=== PATIENT | female | born 1930 | race Asian ===

== ENCOUNTER 2016-12-12 21:19 | Inpatient (IN) | payer MEDICARE, OTHER ==
--- NOTE | 2016-12-12 22:29 | RADIOLOGY REPORT (SQ) ---
EXAM DESCRIPTION: FEMUR RIGHT COMPLETED DATE/TIME: 12/12/2016 9:55 pm REASON FOR STUDY: fall COMPARISON: None. NUMBER OF VIEWS: Two views. TECHNIQUE: Two radiographic images acquired of the right femur to include hip and knee in at least o ne projection. LIMITATIONS: None. FINDINGS: MINERALIZATION: Normal. BONES: An oblique lucency is identified at the level of the proximal femur which I cannot exclude as an intertrochanteric fracture. Clinical correlation is recommended. No other evidence for fracture is seen. SOFT TISSUES: No obvious swelling or foreign body. OTHER: No other significant finding. IMPRESSION: An oblique lucency is identified at the level of the proximal femur which I cannot exclu de as an intertrochanteric fracture. Clinical correlation is recommended. No other evidence for fra cture is seen. TECHNICAL DOCUMENTATION: JOB ID: [id number]- All Rights Reserved
[2016-12-12] MEDS ORDERED: MORPHINE SULFATE 10 MG/ML INJ IV ONE ×2 (22:42)
--- NOTE | 2016-12-12 22:46 | ER Document Report ---
ED General - General Chief Complaint: Leg Pain Stated Complaint: FALL,HIP PAIN Time Seen by Provider: 12/12/16 21:57 Notes: Patient is an 86-year-old female who presents with complaint of a fall from a recliner. Her home health aide and power of corporate attorney was at the health with her. She usually walks well without a cane or walker. She says she was get out of the recliner and fell onto her right side. She denies pain other than in her right hip and proximal femur. She says she cannot move it or walk. She denies any her head. No loss of consciousness. She does not take blood thinning medications. TRAVEL OUTSIDE OF THE [place] IN LAST 30 DAYS: No - Related Data Allergies/Adverse Reactions: levothyroxine sodium [Levothyroxine Sodium] Adverse Reaction (Verified 03/27/14 17:52) NAUSEA/VOMITING Past Medical History - Social History Smoking Status: Never Smoker Frequency of alcohol use: None Drug Abuse: None Family History: Reviewed & Not Pertinent - Past Medical History Cardiac Medical History: Reports: Hx Hypertension - meds 8-10 yrs Denies: Hx Coronary Artery Disease, Hx Heart Attack Pulmonary Medical History: Denies: Hx Asthma, Hx Bronchitis, Hx COPD, Hx Pneumonia Neurological Medical History: Denies: Hx Cerebrovascular Accident, Hx Seizures Musculoskeltal Medical History: 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 Denies: Hx Pacemaker - Immunizations Hx Diphtheria, Pertussis, Tetanus Vaccination: No Hx Pneumococcal Vaccination: 07/10/08 Review of Systems - Review of Systems Notes: My Normal Review Basic REVIEW OF SYSTEMS: CONSTITUTIONAL : Denies fever, chills, or sweats. Denies recent illness. EENT: Denies eye, ear, throat, or mouth pain or symptoms. Denies nasal or sinus congestion. RESPIRATORY: Denies cough, cold, or chest congestion. Denies shortness of breath, difficulty breathing, or wheezing. GASTROINTESTINAL: Denies abdominal pain. Denies nausea, vomiting, or diarrhea. Denies constipation. Last BM: MUSCULOSKELETAL: Right hip pain. SKIN: Denies rash or skin lesions. NEUROLOGICAL: Denies altered mental status or loss of consciousness. Denies headache. Denies weakness or paralysis or loss of use of either side. Denies problems with gait or speech. Denies sensory or motor loss. ALL OTHER SYSTEMS REVIEWED AND NEGATIVE. Physical Exam - Vital signs Vitals: Pulse Ox 94 12/12/16 21:29 - Notes Notes: General Appearance: Well nourished, alert, cooperative, no acute distress, moderate obvious discomfort with any hip movement. Vitals: reviewed, See vital signs table. Head: no swelling or tenderness to the head Eyes: PERRL, EOMI, Conjuctiva clear Mouth: No decreasd moisture Neck: Tenderness to palpation. No step-offs or deformities. Lungs: No wheezing, No rales, No rhonci, No accessory muscle use, good air exchange bilaterally. Heart: Normal rate, Regular rythm, No murmur, no rub Abdomen: Normal BS, soft, No rigidity, No abdominal tenderness, No guarding, no rebound, no abdominal masses, no organomegaly Extremities: strength 5/5 in all extremities, good pulses in all extremities, patient has pain to palpation over the right hip. Pelvis is stable. She has pain with any attempted movement of the right hip. Right knee and leg distal to right knee is nontender. Left lower extremity is nontender. Upper extremities are nontender., no edema. Skin: warm, dry, appropriate color, no rash Neuro: speech clear, oriented x 3, normal affect, responds appropriately to questions. Course - Re-evaluation Re-evalutation: 12/13/16 01:55 CT scan did confirm that she does have a intertrochanteric fracture. This is consistent with her physical exam findings. I did speak with Dr. Newell who agrees to admit the patient for consult with orthopedics. Dr. Smiley is the orthopedist covering [facility]. Preop Labs are pending. Dictation of this chart was performed using voice recognition software; therefore, there may be some unintended grammatical errors. 12/13/16 01:56 - Vital Signs Vital signs: Temp Pulse Resp BP Pulse Ox 110/94 H 90 L 12/12/16 22:46 12/12/16 23:09 - EKG Interpretation by Me Additional EKG results interpreted by me: 12/13/16 01:54 EKG is reviewed and interpreted by me. EKG shows normal sinus rhythm with a rate of [address] segment elevation or depression. No ischemic T-wave inversions. MO interval, QRS duration, QTc intervals are within normal range. Old EKG for comparison is from February 27, 2013. Discharge - Discharge Clinical Impression: Hip fracture Qualifiers: Encounter type: initial encounter Fracture type: closed Laterality: right Qualified Code(s): S72.001A - Fracture of unspecified part of neck of right femur, initial encounter for closed fracture Condition: Stable Disposition: ADMITTED INPATIENT Admitting Provider: Newell Unit Admitted: Medical Floor
--- NOTE | 2016-12-12 23:53 | RADIOLOGY REPORT (SQ) ---
EXAM DESCRIPTION: CT RT LOWER EXTREMITY WITHOUT COMPLETED DATE/TIME: 12/12/2016 11:10 pm REASON FOR STUDY: right hip pain. trauma COMPARISON: None. TECHNIQUE: Axial imaging performed through the right hip with reformatted coronal and sagittal imagi ng windowed for bone and soft tissues. Images saved to PACS. 3D IMAGING: Were 3D images as MIP, SSD, or volume rendering performed at the work station? No All CT scanners at this facility use dose modulation, iterative reconstruction, and/or weight based d osing when appropriate to reduce radiation dose to as low as reasonably achievable (ALARA). [facility]: Dose Right [facility]: CareDose [facility]: Dose Right [facility]: Teradose 4D [facility]: [employer] LIMITATIONS: None. RADIATION DOSE: 4.12 mGy. FINDINGS: SOFT TISSUES: No obvious swelling or foreign body. BONES: Transverse fracture is identified just proximal to the intertrochanteric region at the base of the neck of the femur with angulation at the fracture site. No other evidence for fracture is seen. MINERALIZATION: Normal. OTHER: No other significant finding. IMPRESSION: Transverse fracture is identified just proximal to the intertrochanteric region at the b ase of the neck of the right femur with angulation at the fracture site. No other evidence for fract ure is seen. Other findings as noted above TECHNICAL DOCUMENTATION: JOB ID: [id number] Quality ID # [id number]: Final reports with documentation of one or more dose reduction techniques (e.g., Au tomated exposure control, adjustment of the mA and/or kV according to patient size, use of iterative reconstruction technique) 2010 [employer]- All Rights Reserved
[2016-12-13] MEDS ORDERED: MORPHINE SULFATE 10 MG/ML INJ IV ONE (00:12)
--- NOTE | 2016-12-13 01:14 | RADIOLOGY REPORT (SQ) ---
EXAM DESCRIPTION: CHEST SINGLE VIEW COMPLETED DATE/TIME: 12/13/2016 1:05 am REASON FOR STUDY: pre-op COMPARISON: 06/09/2014. EXAM PARAMETERS: NUMBER OF VIEWS: One view. TECHNIQUE: Single frontal radiographic view of the chest acquired. RADIATION DOSE: NA LIMITATIONS: None. FINDINGS: LUNGS AND PLEURA: Emphysematous appearance. MEDIASTINUM AND HILAR STRUCTURES: No masses. Contour normal. HEART AND VASCULAR STRUCTURES: Heart normal in size. Normal vasculature. BONES: No acute findings. HARDWARE: Nuchal clips. Electronic device overlies the left upper breast. OTHER: No other significant finding. IMPRESSION: NO ACUTE RADIOGRAPHIC FINDING IN THE CHEST. TECHNICAL DOCUMENTATION: JOB ID: [id number]
[2016-12-13] MEDS ORDERED: ACETAMINOPHEN 325 MG TABLET PO PRN (02:04)
[2016-12-13] MEDS ORDERED: NORMAL SALINE 1000 ML 1,000 ML IV PRN (02:04)
[2016-12-13] MEDS ORDERED: IPRATROPIUM/ALBUTEROL 0.5-2.5 MG/3 ML AMPUL NEB PRN (02:08)
[2016-12-13 02:40] LABS: ANION GAP 7 (5-19); BLOOD UREA NITROGEN 20 mg/dL (7-20); CALCIUM 9.9 mg/dL (8.4-10.2); CARBON DIOXIDE 27 mmol/L (22-30); CHLORIDE 104 mmol/L (98-107); CREATININE RESULT 0.76 mg/dL (0.52-1.25); GLUCOSE 109 mg/dL (75-110); POTASSIUM 4.1 mmol/L (3.6-5.0); SODIUM 138.4 mmol/L (137-145)
[2016-12-13 02:41] LABS: PROTHROMBIN TIME 12.9 SEC (11.4-15.4)
[2016-12-13 02:42] LABS: PARTIAL THROMBOPLASTIN TIME 25.8 SEC (23.5-35.8)
[2016-12-13 02:43] LABS: ABSOLUTE BASOPHILS # (AUTO) 0.1 10^3/uL (0.0-0.2); ABSOLUTE LYMPHOCYTES (AUTO) 1.2 10^3/uL (0.5-4.7); ABSOLUTE MONOCYTES (AUTO) 0.5 10^3/uL (0.1-1.4); ABSOLUTE NEUT (AUTO) 7.7 10^3/uL (1.7-8.2); BASOPHILS % (AUTO) 0.5 % (0-2); EOSINOPHILS % (AUTO) 0.1 % (0-6); HEMATOCRIT 37.6 % (36.0-47.0); HEMOGLOBIN 12.5 g/dL (12.0-15.5); HGB HCT DIFFERENCE -0.1; LYMPHOCYTES % (AUTO) 12.7 % (13-45); MEAN CORPUSCULAR HEMOGLOBIN 32.7 pg (27.0-33.4); MEAN CORPUSCULAR HGB CONC 33.3 g/dL (32.0-36.0); MEAN CORPUSCULAR VOLUME 98 fl (80-97); MONOCYTES % (AUTO) 5.5 % (3-13); RED BLOOD COUNT 3.83 10^6/uL (3.72-5.28); RED CELL DISTRIBUTION WIDTH 13.7 % (11.5-14.0); SEGMENTED NEUTROPHILS % (AUTO) 81.2 % (42-78); WHITE BLOOD COUNT 9.5 10^3/uL (4.0-10.5)
[2016-12-13] MEDS ORDERED: ENOXAPARIN SODIUM INJ 40 MG/0.4 ML DISP.SYRIN SUBCUT SCH (08:00)
[2016-12-13] MEDS: ENOXAPARIN SODIUM INJ 30 MG/0.3 ML DISP.SYRIN SUBCUT SCH (09:44)
--- NOTE | 2016-12-13 09:55 | PDOC H&P ---
History of Present Illness Admission Date/PCP: 12/13/16 02:04 THIERRY HEATON MD Patient complains of: Fall and a fracture of the right femur History of Present Illness: AFRICA FELDMAN is a 86 year old female This is a 86-year-old female with a history of the hypertension hyperlipidemia and hypothyroidism and underlying dementia usually walk with the cane without any problem. According to the caregiver patient's fell from the recliner yesterday and complaining of right-sided hip pain and patient was brought to the emergency department with the patient was found a right intratrochanteric fracture in the femur and patient was admitted for further evaluation and treatment Patient's currently denied any pain patient was given morphine in the emergency departments. Patients denied any chest pain denied any shortness of the breath Patient's platelet count was low but most likely which is listed repeated again was always normal before Patients denied any history of any heart disease in the past Past Medical History Cardiac Medical History: Reports: Hyperlipidema, Hypertension - meds 8-10 yrs Denies: Coronary Artery Disease, Myocardial Infarction Pulmonary Medical History: Denies: Asthma, Bronchitis, Chronic Obstructive Pulmonary Disease (COPD), Pneumonia Neurological Medical History: Denies: Seizures GI Medical History: Reports: Gastroesophageal Reflux Disease Musculoskeltal Medical History: Reports: Arthritis - fingers Psychiatric Medical History: Reports: Dementia Hematology: Denies: Anemia Past Surgical History Past Surgical History: Reports: Hysterectomy Denies: Pacemaker Social History Smoking Status: Never Smoker Frequency of Alcohol Use: None Hx Recreational Drug Use: No Hx Prescription Drug Abuse: No - Advance Directive Resuscitation Status: Full Code Family History Family History: Reviewed & Not Pertinent Parental Family History Reviewed: Yes Children Family History Reviewed: Yes Sibling(s) Family History Reviewed.: Yes Medication/Allergy Allergies/Adverse Reactions: levothyroxine sodium [Levothyroxine Sodium] Adverse Reaction (Verified 03/27/14 17:52) NAUSEA/VOMITING Review of Systems Constitutional: ABSENT: chills, fever(s), headache(s), weight gain, weight loss Eyes: ABSENT: visual disturbances Ears: ABSENT: hearing changes Cardiovascular: ABSENT: chest pain, dyspnea on exertion, edema, orthropnea, palpitations Respiratory: ABSENT: cough, hemoptysis Gastrointestinal: ABSENT: abdominal pain, constipation, diarrhea, hematemesis, hematochezia, nausea, vomiting Genitourinary: ABSENT: dysuria, hematuria Musculoskeletal: ABSENT: joint swelling Integumentary: ABSENT: rash, wounds Neurological: ABSENT: abnormal gait, abnormal speech, confusion, dizziness, focal weakness, syncope Psychiatric: ABSENT: anxiety, depression, homidical ideation, suicidal ideation Endocrine: ABSENT: cold intolerance, heat intolerance, menstrual abnormalities, polydipsia, polyuria Hematologic/Lymphatic: ABSENT: easy bleeding, easy bruising, lymphadenopathy Physical Exam Vital Signs: Temp Pulse Resp BP Pulse Ox 98.3 F 73 16 130/59 H 93 12/13/16 07:38 12/13/16 07:38 12/13/16 07:38 12/13/16 07:38 12/13/16 07:38 Intake & Output 12/12/16 12/13/16 12/14/16 06:59 06:59 06:59 Intake Total 150 Balance 150 Weight 43.68 kg General appearance: PRESENT: no acute distress, well-developed, well-nourished Head exam: PRESENT: atraumatic, normocephalic Eye exam: PRESENT: conjunctiva pink, EOMI, PERRLA. ABSENT: scleral icterus Ear exam: PRESENT: normal external ear exam Mouth exam: PRESENT: moist, tongue midline Neck exam: PRESENT: full ROM. ABSENT: carotid bruit, JVD, lymphadenopathy, thyromegaly Respiratory exam: PRESENT: clear to auscultation faroqo Cardiovascular exam: PRESENT: RRR. ABSENT: diastolic murmur, rubs, systolic murmur Pulses: PRESENT: normal dorsalis pedis pul, +2 pedal pulses bilateral Vascular exam: PRESENT: normal capillary refill GI/Abdominal exam: PRESENT: normal bowel sounds, soft. ABSENT: distended, guarding, mass, organolmegaly, rebound, tenderness Rectal exam: PRESENT: deferred Extremities exam: PRESENT: other - rt side leg ext rotation. ABSENT: pedal edema Neurological exam: PRESENT: alert, awake, oriented to person, oriented to place , oriented to time, oriented to situation. ABSENT: motor sensory deficit Psychiatric exam: PRESENT: appropriate affect, normal mood. ABSENT: homicidal ideation, suicidal ideation Skin exam: PRESENT: dry, intact, warm. ABSENT: cyanosis, rash Results Laboratory Results: 12/13/16 02:10 12/13/16 02:10 12/13/16 12/13/16 02:10 02:10 WBC 9.5 RBC 3.83 Hgb 12.5 Hct 37.6 MCV 98 H MCH 32.7 MCHC 33.3 RDW 13.7 Plt Count 100 L Seg Neutrophils % 81.2 H Lymphocytes % 12.7 L Monocytes % 5.5 Eosinophils % 0.1 Basophils % 0.5 Absolute Neutrophils 7.7 Absolute Lymphocytes 1.2 Absolute Monocytes 0.5 Absolute Eosinophils 0.0 Absolute Basophils 0.1 Sodium 138.4 Potassium 4.1 Chloride 104 Carbon Dioxide 27 Anion Gap 7 BUN 20 Creatinine 0.76 Est GFR ( Amer) > 60 Est GFR (Non-Af Amer) > 60 Glucose 109 Calcium 9.9 Impressions: Femur X-Ray 12/12/16 21:26 IMPRESSION: An oblique lucency is identified at the level of the proximal femur which I cannot exclude as an intertrochanteric fracture. Clinical correlation is recommended. No other evidence for fracture is seen. Lower Extremity CT 12/12/16 22:42 IMPRESSION: Transverse fracture is identified just proximal to the intertrochanteric region at the base of the neck of the right femur with angulation at the fracture site. No other evidence for fracture is seen. Other findings as noted above Chest X-Ray 12/13/16 00:07 IMPRESSION: NO ACUTE RADIOGRAPHIC FINDING IN THE CHEST. Assessment & Plan - Diagnosis (1) Hip fracture Qualifiers: Encounter type: initial encounter Fracture type: closed Laterality : right Qualified Code(s): S72.001A - Fracture of unspecified part of neck of right femur, initial encounter for closed fracture Plan: Consult the orthopedic surgeon and discussed with the Ortho and sameer castano was likely patient is going for the surgery Will repeat the CBC most likely the thrombocytopenia from the platelet clumping. (2) Hypertension Qualifiers: Hypertension type: essential hypertension Qualified Code(s): I10 - Essential (primary) hypertension Is this a current diagnosis for this admission?: YesPlan: Currently stable (3) Hypothyroidism Qualifiers: Hypothyroidism type: unspecified Qualified Code(s): E03.9 - Hypothyroidism, unspecified Is this a current diagnosis for this admission?: YesPlan: Continues to current medications (4) Dementia Qualifiers: Dementia behavioral disturbance: without behavioral disturbance Is this a current diagnosis for this admission?: YesPlan: Currently stable with the continuous medications (5) Thrombocytopenia Is this a current diagnosis for this admission?: YesPlan: Will repeat the CBC again and if is more than 100 I think patient should be okay patient's coag is all negative and there is no sign of any DIC. Patient's platelet count was couple of weeks back was all normal (6) Osteoarthritis Qualifiers: Osteoarthritis location: unspecified site Is this a current diagnosis for this admission?: YesPlan: Continues as needed medications - Time Time Spent: 30 to 50 Minutes Medications reviewed and adjusted accordingly: Yes Anticipated discharge: SNF Within: Other - Inpatient Certification Medical Necessity: Need Close Monitoring Due to Risk of Patient Decompensation, Need For IV Fluids Post Hospital Care: D/C Agriculture Technician Documentation - Plan Summary Plan Summary: Patient is currently all the blood work is stable chest x-ray and EKG is stable except the patient's platelet count is low and will repeat it again and if is still stable about 100 patient is low risk for the surgery. Discussed with the surgeon and also discussed with the power of environmental attorney regarding the patient's current conditions.
--- NOTE | 2016-12-13 10:02 | PDOC CONSULTATION ---
History of Present Illness Admission Date/PCP: 12/13/16 02:04 THIERRY HEATON MD Patient complains of: Right Hip Pain History of Present Illness: AFRICA FELDMAN is a 86 year old female who lives at home alone does have a caregiver who is her neighbor who acts as the power of patent prosecution attorney. According to the caregiver patient was on her recliner when she inadvertently fell onto her right hip. At the time of injury she is unable to ambulate had notable pain. She was admitted to the service of Dr. Heaton currently she is taking morphine. Pain is worse with motion. Due to patient's history of dementia she is a poor historian. Denies numbness or tingling. Pain 01/16. Past Medical History Cardiac Medical History: Reports: Hyperlipidema, Hypertension - meds 8-10 yrs Denies: Coronary Artery Disease, Myocardial Infarction Pulmonary Medical History: Denies: Asthma, Bronchitis, Chronic Obstructive Pulmonary Disease (COPD), Pneumonia Neurological Medical History: Denies: Seizures GI Medical History: Reports: Gastroesophageal Reflux Disease Musculoskeltal Medical History: Reports: Arthritis - fingers Psychiatric Medical History: Reports: Dementia Hematology: Denies: Anemia Past Surgical History Past Surgical History: Reports: Hysterectomy Denies: Pacemaker Social History Smoking Status: Never Smoker Frequency of Alcohol Use: None Hx Recreational Drug Use: No Hx Prescription Drug Abuse: No - Advance Directive Resuscitation Status: Full Code Family History Family History: Reviewed & Not Pertinent Parental Family History Reviewed: No Children Family History Reviewed: No Sibling(s) Family History Reviewed.: No Medication/Allergy Home Medications: Calcium Carbonate [Tums Chewable 500 mg Tab.chew] 500 mg PO BID 12/13/16 Cholecalciferol (Vitamin D3) [Vitamin D3] 2,000 unit PO DAILY 12/13/16 Folic Acid 1 mg PO DAILY 12/13/16 Hydrochlorothiazide [Hydrodiuril 12.5 mg Capsule] 12.5 mg PO QAM 12/13/16 Levothyroxine Sodium [Synthroid] 50 mcg PO DAILY 12/13/16 Memantine HCl [Namenda] 5 mg PO DAILY 12/13/16 Multivitamin [Tab-A-Melissa (Multiple Vitamin) Tablet] 1 tab PO DAILY 12/13/16 Reading-3/Dha/Epa/Fish Oil [Fish Oil 1,000 mg Softgel] 1,000 mg PO DAILY 12/13/16 Allergies/Adverse Reactions: levothyroxine sodium [Levothyroxine Sodium] Adverse Reaction (Verified 03/27/14 17:52) NAUSEA/VOMITING Review of Systems ROS unobtainable: Due to mental status Physical Exam Vital Signs: Temp Pulse Resp BP Pulse Ox 98.3 F 73 16 130/59 H 93 12/13/16 07:38 12/13/16 07:38 12/13/16 07:38 12/13/16 07:38 12/13/16 07:38 Intake & Output 12/12/16 12/13/16 12/14/16 06:59 06:59 06:59 Intake Total 150 Balance 150 Weight 43.68 kg General appearance: PRESENT: no acute distress, cooperative, hard of hearing, well-developed, well-nourished Head exam: PRESENT: atraumatic, normocephalic Eye exam: PRESENT: conjunctiva pink, EOMI. ABSENT: scleral icterus Ear exam: PRESENT: normal external ear exam Mouth exam: PRESENT: moist, tongue midline Neck exam: PRESENT: full ROM. ABSENT: carotid bruit, JVD, lymphadenopathy, thyromegaly Respiratory exam: PRESENT: unlabored Cardiovascular exam: PRESENT: RRR. ABSENT: diastolic murmur, rubs, systolic murmur Pulses: PRESENT: normal dorsalis pedis pul, +2 pedal pulses bilateral Vascular exam: PRESENT: normal capillary refill GI/Abdominal exam: PRESENT: normal bowel sounds, soft, tenderness. ABSENT: distended, guarding, mass, organolmegaly, rebound Rectal exam: PRESENT: deferred Musculoskeletal exam: PRESENT: other - Right hip: Short external rotated, positive logroll. Intact plantar flexion/dorsiflexion. No sensory deficits. No evidence of open wound. No calf tenderness. No tenderness to palpation throughout the noninvolved extremities. Neurological exam: PRESENT: alert, awake, oriented to person, oriented to place , oriented to time, oriented to situation, CN II-XII grossly intact. ABSENT: motor sensory deficit Psychiatric exam: PRESENT: appropriate affect, normal mood. ABSENT: homicidal ideation, suicidal ideation Skin exam: PRESENT: dry, intact, warm. ABSENT: cyanosis, rash Results Laboratory Results: 12/13/16 02:10 12/13/16 02:10 12/13/16 12/13/16 02:10 02:10 WBC 9.5 RBC 3.83 Hgb 12.5 Hct 37.6 MCV 98 H MCH 32.7 MCHC 33.3 RDW 13.7 Plt Count 100 L Seg Neutrophils % 81.2 H Lymphocytes % 12.7 L Monocytes % 5.5 Eosinophils % 0.1 Basophils % 0.5 Absolute Neutrophils 7.7 Absolute Lymphocytes 1.2 Absolute Monocytes 0.5 Absolute Eosinophils 0.0 Absolute Basophils 0.1 Sodium 138.4 Potassium 4.1 Chloride 104 Carbon Dioxide 27 Anion Gap 7 BUN 20 Creatinine 0.76 Est GFR ( Amer) > 60 Est GFR (Non-Af Amer) > 60 Glucose 109 Calcium 9.9 Impressions: Femur X-Ray 12/12/16 21:26 IMPRESSION: An oblique lucency is identified at the level of the proximal femur which I cannot exclude as an intertrochanteric fracture. Clinical correlation is recommended. No other evidence for fracture is seen. Lower Extremity CT 12/12/16 22:42 IMPRESSION: Transverse fracture is identified just proximal to the intertrochanteric region at the base of the neck of the right femur with angulation at the fracture site. No other evidence for fracture is seen. Other findings as noted above Chest X-Ray 12/13/16 00:07 IMPRESSION: NO ACUTE RADIOGRAPHIC FINDING IN THE CHEST. Status: Image reviewed by me - I have reviewed patient's radiographs demonstrate intertrochanteric right hip fracture there is no signs to indicate pathologic fracture. Assessment & Plan - Diagnosis (1) Fracture, intertrochanteric, right femur Qualifiers: Encounter type: initial encounter Fracture type: closed Fracture alignment: displaced Qualified Code(s): S72.141A - Displaced intertrochanteric fracture of right femur, initial encounter for closed fracture Is this a current diagnosis for this admission?: YesPlan: I discussed findings on radiographs with patient and power of patent prosecution attorney. We discussed treatment options including nonoperative and operative intervention. Given the fact patient is ambulatory without an assistive device despite her dementia I have recommended operative intervention. Risks and benefits were explained. Risks include anesthetic complications, excessive bleeding, infection, injury to surrounding nerves, vessels and tendons, bruising, healing difficulties, scar formation, posttraumatic arthritis and any unforseen complication. Patients power of patent prosecution attorney has verbalized understanding and consented to the procedure. I also discussed patient's thrombocytopenia and anticoagulation postoperatively with Dr. Heaton we decided to proceed with Lovenox 30 mg.
[2016-12-13 10:06] LABS: ABSOLUTE LYMPHOCYTES (AUTO) 0.5 10^3/uL (0.5-4.7); ABSOLUTE MONOCYTES (AUTO) 0.4 10^3/uL (0.1-1.4); ABSOLUTE NEUT (AUTO) 8.3 10^3/uL (1.7-8.2); BASOPHILS % (AUTO) 0.4 % (0-2); EOSINOPHILS % (AUTO) 0.1 % (0-6); HEMATOCRIT 38.4 % (36.0-47.0); HEMOGLOBIN 12.9 g/dL (12.0-15.5); HGB HCT DIFFERENCE 0.3; LYMPHOCYTES % (AUTO) 5.8 % (13-45); MEAN CORPUSCULAR HEMOGLOBIN 32.8 pg (27.0-33.4); MEAN CORPUSCULAR HGB CONC 33.6 g/dL (32.0-36.0); MEAN CORPUSCULAR VOLUME 98 fl (80-97); MONOCYTES % (AUTO) 4.1 % (3-13); RED BLOOD COUNT 3.93 10^6/uL (3.72-5.28); RED CELL DISTRIBUTION WIDTH 13.1 % (11.5-14.0); SEGMENTED NEUTROPHILS % (AUTO) 89.6 % (42-78); WHITE BLOOD COUNT 9.2 10^3/uL (4.0-10.5)
[2016-12-13] MEDS: MORPHINE SULFATE 10 MG/ML INJ IV PRN ×2 (10:11→14:39)
--- NOTE | 2016-12-13 12:16 | EKG REPORT ---
SEVERITY:- NORMAL ECG - SINUS RHYTHM : Confirmed by: Nely Oscar MD 13-Dec-2016 12:15:21
[2016-12-13] MEDS ORDERED: CEFAZOLIN INJ 1 GM VIAL ONE (15:31)
[2016-12-13] MEDS ORDERED: MIDAZOLAM 2 MG/2 ML INJ ONE (16:13)
[2016-12-13] MEDS ORDERED: PROPOFOL INJ 200 MG/20 ML VIAL IV ONE (16:13)
[2016-12-13] MEDS ORDERED: MORPHINE SULFATE 10 MG/ML INJ ONE (16:14)
[2016-12-13] MEDS ORDERED: MEPERIDINE HCL/PF INJ 25 MG/1 ML DISP.SYRIN IV PRN (17:17)
[2016-12-13] MEDS ORDERED: PROMETHAZINE HCL INJ 25 MG/1 ML VIAL IV PRN (17:17)
[2016-12-13] MEDS ORDERED: DIPHENHYDRAMINE HCL 50 MG/ML VIAL IV PRN (17:17)
[2016-12-13] MEDS ORDERED: FENTANYL CITRATE INJ/PF 100 MCG/2 ML AMPUL IV PRN ×3 (17:17)
--- NOTE | 2016-12-13 17:56 | Operative Report ---
Operative Report DATE OF SURGERY: 12/13/16 PREOPERATIVE DIAGNOSIS: Right hip intertrochanteric fracture POSTOPERATIVE DIAGNOSIS: Same OPERATION: Short cephalo-medullary nail intertrochanteric fracture SURGEON: ZINA AMES ANESTHESIA: GA COMPLICATIONS: None ESTIMATED BLOOD LOSS: 100cc PROCEDURE: Indication for above procedure: 86-year-old female lives at home and sustained a fall from her recliner. Patient is a community ambulator without assistive device. I discussed the case with the patient's power of automotive sales specialist and the joint decision was made to proceed with operative intervention. Risks and benefits were explained patient power of automotive sales specialist verbalized understanding consented to the procedure. Procedure in detail: Patient was seen and evaluated in the preoperative holding area. The right lower extremity was initialized and marked. Patient received 2 g Ancef IV for bacterial prophylaxis. Patient was taken back to the operative room where transferred operative table. Patient was placed under spinal anesthesia. Once adequate anesthetized he was carefully placed onto the hip positioner the nonoperative lower extremity and bilateral upper extremities were carefully padded and the peroneal nerve was padded and on the nonoperative extremity. The operative extremity was placed in a traction along with adduction and internal rotation. A surgical team debriefing was performed ensuring all instrumentation was available, the surgical procedure was discussed with possible concerns reviewed. A timeout was done identifying correct patient, procedure and extremity everyone in attendance agree with this and verbalized no concerns. Reduction maneuver with the use of the hip traction table were done and C-arm fluoroscopy was used to confirm optimal reduction of the intertrochanteric fracture. Once this was confirmed the lower extremity was prepped with chlor prep and draped in a sterile fashion. At this point a small skin incision was made proximal to the greater trochanter. The guidewire was placed onto the tip of the trochanter advanced down to the level of the lesser trochanter. AP and lateral fluoroscopy was used to confirm appropriate placement of the guidewire. The skin incision was then extended and the underlying fascia opened up carefully to the tip of the greater trochanter. The entry reamer was then used and advanced to the level of the lesser trochanter. At this point Kimberly short gamma nail was opened up and placed onto the aiming arm and advanced down the shaft of the femur. AP and lateral fluoroscopy was then used to confirm appropriate placement of the nail. Then turned my attention to the compression screw fixation in the femoral head. The trochars were advanced to the skin, a skin incision was made, careful dissection down to the fascia to the lateral femoral cortex was then partaken. The guidewire was then used and placed in the center center position with the tip apex distance less than 25 mm. Once this position was obtained the size of the compression screw was measured. AP and lateral fluoroscopy used to confirm appropriate placement of our guide wire. The step reamer was used to drill up through the femoral neck and head. I then carefully advanced the compression screw into position. AP and lateral fluoroscopy was done to confirm appropriate placement of the compression screw this was then locked into position proximally. The compression screw was then disengaged from its mounting device and the guidewire was removed. Lastly proceeded with locking of the nail distally. Using the aiming arm the trochars were advanced to the skin, a skin incision was made. Careful dissection done with a hemostat to the lateral cortex of the femur. I then drilled the near and far cortices. Measured the appropriate sized distal locking screw and secured it into position. At this point AP/lateral and oblique views of the proximal and distal aspect of the nail were taken confirming appropriate placement of the compression screw, distal locking screw and intramedullary nail. Once this was confirmed I proceeded with copious irrigation of the proximal and distal wounds. The deep tissues were closed with 0 Vicryl suture, subcutaneous tissues were closed with 3-0 Monocryl suture. The skin was closed a running 3-0 subcuticular Monocryl suture and reinforced with Dermabond & Steri-Strips. A dressing was placed. Sponge counts, instrument counts and needle counts were correct. Patient was then transferred from the operating room table to the operating room stretcher. The was no intraoperative complications patient tolerated procedure well was stable to PACU. Implants used: Vinton 11 x 180 mm 125 Short Gamma Nail with a 90 mm compression screw Postoperative plan: Patient will begin physical therapy weightbearing as tolerated, Lovenox 30 mg daily for DVT prophylaxis.
[2016-12-13] MEDS ORDERED: RINGERS SOLUTION,LACTATED 1,000 ML IV PRN (17:57)
--- NOTE | 2016-12-13 18:15 | RADIOLOGY REPORT (SQ) ---
EXAM DESCRIPTION: HIP RIGHT AP/LATERAL COMPLETED DATE/TIME: 12/13/2016 6:04 pm REASON FOR STUDY: RIGHT HIP IM NAILING COMPARISON: None. FLUOROSCOPY TIME: Total fluoroscopy time was 1.4 minutes 5 images saved to PACS. TECHNIQUE: Intra-operative images acquired during surgical procedure to evaluate progress. NUMBER OF IMAGES: 5 LIMITATIONS: None. FINDINGS: Fluoroscopy was provided for intraoperative procedure. Please refer to the operative repo rt for further discussion. IMPRESSION: IMAGE(S) OBTAINED DURING PROCEDURE. COMMENT: Quality ID [id number]: Final reports for procedures using fluoroscopy that document radiation exp osure indices, or exposure time and number of fluorographic images (if radiation exposure indices are not available) Please consult full operative report of the attending physician for description of the procedure. TECHNICAL DOCUMENTATION: JOB ID: [id number] [employer]- All Rights Reserved
--- NOTE | 2016-12-13 18:15 | RADIOLOGY REPORT (SQ) ---
EXAM DESCRIPTION: NO CHG FLUORO COMPLETE DATE/TIME: 12/13/2016 6:04 pm REASON FOR STUDY: RIGHT HIP IM NAILING FINDINGS: Please see combined report for performance of procedure and radiologic supervision and int erpretation. IMPRESSION: Please see combined report for performance of procedure and radiologic supervision and i nterpretation.
[2016-12-13] MEDS: CEFAZOLIN 2 GM/D5W RTU 2 GM/50 ML RTUPB IV SCH (21:15)
[2016-12-14] MEDS: MORPHINE SULFATE 10 MG/ML INJ IV PRN (00:57)
[2016-12-14] MEDS: CEFAZOLIN 2 GM/D5W RTU 2 GM/50 ML RTUPB IV SCH ×3 (02:52→15:00)
[2016-12-14 05:59] LABS: HEMATOCRIT 28.7 % (36.0-47.0); HGB HCT DIFFERENCE 0.7; MEAN CORPUSCULAR HEMOGLOBIN 33.4 pg (27.0-33.4); MEAN CORPUSCULAR HGB CONC 34.1 g/dL (32.0-36.0); MEAN CORPUSCULAR VOLUME 98 fl (80-97); RED BLOOD COUNT 2.93 10^6/uL (3.72-5.28); RED CELL DISTRIBUTION WIDTH 13.3 % (11.5-14.0); WHITE BLOOD COUNT 6.6 10^3/uL (4.0-10.5)
[2016-12-14 06:17] LABS: ANION GAP 6 (5-19); BLOOD UREA NITROGEN 18 mg/dL (7-20); CALCIUM 8.5 mg/dL (8.4-10.2); CARBON DIOXIDE 26 mmol/L (22-30); CHLORIDE 106 mmol/L (98-107); CREATININE RESULT 0.65 mg/dL (0.52-1.25); GLUCOSE 101 mg/dL (75-110); POTASSIUM 3.7 mmol/L (3.6-5.0); SODIUM 138.3 mmol/L (137-145)
[2016-12-14 06:23] LABS: HEMOGLOBIN 9.8 g/dL (12.0-15.5)
[2016-12-14] MEDS ORDERED: LEVOTHYROXINE SODIUM 0.05 MG TABLET PO SCH (08:00)
[2016-12-14] MEDS ORDERED: NORMAL SALINE 1000 ML 1,000 ML IV PRN (08:23)
[2016-12-14] MEDS ORDERED: FOLIC ACID 1 MG TABLET PO SCH (10:00)
[2016-12-14] MEDS ORDERED: MULTIVITAMIN TABLET PO SCH (10:00)
[2016-12-14] MEDS: ENOXAPARIN SODIUM INJ 30 MG/0.3 ML DISP.SYRIN SUBCUT SCH (10:31)
--- NOTE | 2016-12-14 10:54 | PDOC PROGRESS REPORT ---
Subjective Progress Note for:: 12/14/16 Physical Exam Vital Signs: Temp Pulse Resp BP Pulse Ox 99.3 F 86 15 120/77 92 12/14/16 07:46 12/14/16 07:46 12/14/16 07:46 12/14/16 07:46 12/14/16 07:46 Intake & Output 12/13/16 12/14/16 12/15/16 06:59 06:59 06:59 Intake Total 150 5131 Output Total 2105 Balance 150 3026 Weight 45.6 kg General appearance: PRESENT: no acute distress Eye exam: PRESENT: PERRLA Mouth exam: PRESENT: neck supple Respiratory exam: PRESENT: clear to auscultation farooq Cardiovascular exam: PRESENT: +S1, +S2 GI/Abdominal exam: PRESENT: normal bowel sounds, soft Extremities exam: ABSENT: pedal edema Additional comments: rt leg dressing intact Neurological exam: PRESENT: alert, awake, oriented to person, oriented to place , oriented to time, oriented to situation, CN II-XII grossly intact Skin exam: PRESENT: dry Results Laboratory Results: 12/14/16 05:24 12/14/16 05:24 12/14/16 12/14/16 05:24 05:24 WBC 6.6 RBC 2.93 L Hgb 9.8 L D Hct 28.7 L MCV 98 H MCH 33.4 MCHC 34.1 RDW 13.3 Plt Count 108 L Sodium 138.3 Potassium 3.7 Chloride 106 Carbon Dioxide 26 Anion Gap 6 BUN 18 Creatinine 0.65 Est GFR ( Amer) > 60 Est GFR (Non-Af Amer) > 60 Glucose 101 Calcium 8.5 Impressions: Femur X-Ray 12/12/16 21:26 IMPRESSION: An oblique lucency is identified at the level of the proximal femur which I cannot exclude as an intertrochanteric fracture. Clinical correlation is recommended. No other evidence for fracture is seen. Lower Extremity CT 12/12/16 22:42 IMPRESSION: Transverse fracture is identified just proximal to the intertrochanteric region at the base of the neck of the right femur with angulation at the fracture site. No other evidence for fracture is seen. Other findings as noted above Fluoroscopy 12/13/16 00:00 IMPRESSION: Please see combined report for performance of procedure and radiologic supervision and interpretation. Hip/Pelvis X-Ray 12/13/16 00:00 IMPRESSION: IMAGE(S) OBTAINED DURING PROCEDURE. Chest X-Ray 12/13/16 00:07 IMPRESSION: NO ACUTE RADIOGRAPHIC FINDING IN THE CHEST. Assessment & Plan - Diagnosis (1) Hip fracture Qualifiers: Encounter type: initial encounter Fracture type: closed Laterality : right Qualified Code(s): S72.001A - Fracture of unspecified part of neck of right femur, initial encounter for closed fracture Plan: Status post surgery currently stable. Patient's do not want to use any strong pain medications we give tylenolol every 6 hour as needed (2) Hypertension Qualifiers: Hypertension type: essential hypertension Qualified Code(s): I10 - Essential (primary) hypertension Is this a current diagnosis for this admission?: YesPlan: Currently stable (3) Hypothyroidism Qualifiers: Hypothyroidism type: unspecified Qualified Code(s): E03.9 - Hypothyroidism, unspecified Is this a current diagnosis for this admission?: YesPlan: Continues to current medications (4) Dementia Qualifiers: Dementia behavioral disturbance: without behavioral disturbance Is this a current diagnosis for this admission?: YesPlan: Currently stable with the continuous medications (5) Thrombocytopenia Is this a current diagnosis for this admission?: YesPlan: Before the surgery patient's platelet count was 160 currently 108 I think is currently all stable will continues to patients to monitor repeat the platelet count in the morning (6) Osteoarthritis Qualifiers: Osteoarthritis location: unspecified site Is this a current diagnosis for this admission?: YesPlan: Continues as needed medications - Time Time Spent with patient: 15-24 minutes Medications reviewed and adjusted accordingly: Yes Anticipated discharge: SNF - Inpatient Certification Medical Necessity: Need Close Monitoring Due to Risk of Patient Decompensation Post Hospital Care: D/C Title Officer Documentation - Plan Summary Plan Summary: Patient is currently stable will cut down the IV fluid while the p.o. patient's p.o. intake is stable. Continues to Lovenox for the DVT prophylaxis and continues to current other medications and follow with the Ortho
--- NOTE | 2016-12-14 12:56 | PDOC PROGRESS REPORT ---
Subjective Progress Note for:: 12/14/16 Subjective:: Patient is awake and resting in bed comfortably. Patient has a friend or family member here present. No issues overnight after surgery. Patient did complain of swelling of the left forearm. Physical Exam Vital Signs: Temp Pulse Resp BP Pulse Ox 37.4 C 86 15 120/77 92 12/14/16 07:46 12/14/16 07:46 12/14/16 07:46 12/14/16 07:46 12/14/16 07:46 Intake & Output 12/13/16 12/14/16 12/15/16 06:59 06:59 06:59 Intake Total 150 5131 Output Total 2105 Balance 150 3026 Weight 45.6 kg General appearance: PRESENT: no acute distress Adult Front & Back Image: 1 - Dressings are dry clean and intact. 2 5 out of 5 motor distally with gross sensation to light touch intact. Soft calves with no tenderness. Good capillary refill. Results Laboratory Results: 12/14/16 05:24 12/14/16 05:24 12/14/16 12/14/16 05:24 05:24 WBC 6.6 RBC 2.93 L Hgb 9.8 L D Hct 28.7 L MCV 98 H MCH 33.4 MCHC 34.1 RDW 13.3 Plt Count 108 L Sodium 138.3 Potassium 3.7 Chloride 106 Carbon Dioxide 26 Anion Gap 6 BUN 18 Creatinine 0.65 Est GFR ( Amer) > 60 Est GFR (Non-Af Amer) > 60 Glucose 101 Calcium 8.5 Impressions: Femur X-Ray 12/12/16 21:26 IMPRESSION: An oblique lucency is identified at the level of the proximal femur which I cannot exclude as an intertrochanteric fracture. Clinical correlation is recommended. No other evidence for fracture is seen. Lower Extremity CT 12/12/16 22:42 IMPRESSION: Transverse fracture is identified just proximal to the intertrochanteric region at the base of the neck of the right femur with angulation at the fracture site. No other evidence for fracture is seen. Other findings as noted above Fluoroscopy 12/13/16 00:00 IMPRESSION: Please see combined report for performance of procedure and radiologic supervision and interpretation. Hip/Pelvis X-Ray 12/13/16 00:00 IMPRESSION: IMAGE(S) OBTAINED DURING PROCEDURE. Chest X-Ray 12/13/16 00:07 IMPRESSION: NO ACUTE RADIOGRAPHIC FINDING IN THE CHEST. Status: Image reviewed by me Assessment & Plan - Plan Summary Plan Summary: 86-year-old female postop day 1 from cephalo-medullary nailing of right intertrochanteric hip fracture. We will work with physical therapy. I believe the IV in her left forearm is infiltrated. I told the nurse to address and remove it. I believe the patient is tolerating p.o. therefore probably she will not need another IV placed at all. Weight-bear as tolerated. Continue DVT prophylaxis. H&H is 9.8/28.7, will monitor.
[2016-12-15 05:47] LABS: HEMATOCRIT 28.7 % (36.0-47.0); HGB HCT DIFFERENCE 1.3; MEAN CORPUSCULAR HEMOGLOBIN 33.5 pg (27.0-33.4); MEAN CORPUSCULAR HGB CONC 34.7 g/dL (32.0-36.0); MEAN CORPUSCULAR VOLUME 97 fl (80-97); RED BLOOD COUNT 2.97 10^6/uL (3.72-5.28); RED CELL DISTRIBUTION WIDTH 13.6 % (11.5-14.0)
[2016-12-15 05:56] LABS: ANION GAP 8 (5-19); BLOOD UREA NITROGEN 11 mg/dL (7-20); CALCIUM 8.6 mg/dL (8.4-10.2); CARBON DIOXIDE 25 mmol/L (22-30); CHLORIDE 107 mmol/L (98-107); CREATININE RESULT 0.54 mg/dL (0.52-1.25); GLUCOSE 113 mg/dL (75-110); POTASSIUM 3.5 mmol/L (3.6-5.0); SODIUM 139.9 mmol/L (137-145)
[2016-12-15] MEDS: OXYCODONE-ACETAMINOPHEN 5-325 MG TABLET PO PRN ×2 (08:39→17:48)
[2016-12-15] MEDS ORDERED: POTASSIUM CHLORIDE 20 MEQ/15 ML UDCUP PO ONE (09:00)
[2016-12-15] MEDS: FOLIC ACID 1 MG TABLET PO SCH (09:47)
[2016-12-15] MEDS: MULTIVITAMIN TABLET PO SCH (09:48)
[2016-12-15] MEDS: CHOLECALCIFEROL (D3) 1,000 UNIT TABLET PO SCH (09:48)
[2016-12-15] MEDS: HYDROCHLOROTHIAZIDE 12.5 MG CAPSULE PO SCH (09:48)
[2016-12-15] MEDS: MEMANTINE HCL 10 MG TABLET PO SCH (09:48)
[2016-12-15] MEDS: OMEGA-3 ACID ETHYL ESTERS 1 GM CAPSULE PO SCH (09:49)
[2016-12-15] MEDS: CALCIUM CARBONATE 500 MG TAB.CHEW PO SCH ×2 (09:49→17:12)
[2016-12-15] MEDS ORDERED: (PENDING PHARMACY ID) (Memantine Hcl [Namenda] 5 MG) PO SCH (10:00)
[2016-12-15] MEDS ORDERED: LEVOTHYROXINE SODIUM 0.05 MG TABLET PO ONE (10:00)
[2016-12-15] MEDS ORDERED: (PENDING PHARMACY ID) (Omega-3/Dha/Epa/Fish Oil [Fish Oil 1,000 Mg Softgel] 1,000 MG) PO SCH (10:00)
[2016-12-15] MEDS ORDERED: (PENDING PHARMACY ID) (Cholecalciferol (Vitamin D3) [Vitamin D3] 2,000 UNIT) PO SCH (10:00)
--- NOTE | 2016-12-15 10:01 | PDOC PROGRESS REPORT ---
Subjective Progress Note for:: 12/15/16 Subjective:: Patient is currently doing fair. Denied any chest pain denied any shortness of the breath. Patient's pain is under control. Patient still not have a physical therapy done yet Physical Exam Vital Signs: Temp Pulse Resp BP Pulse Ox 99.0 F 85 14 141/66 H 94 12/15/16 08:00 12/15/16 08:00 12/15/16 08:00 12/15/16 08:00 12/15/16 08:00 Intake & Output 12/14/16 12/15/16 12/16/16 06:59 06:59 06:59 Intake Total 5131 520 Output Total 2105 360 Balance 3026 160 Weight 45.6 kg 48.4 kg General appearance: PRESENT: no acute distress, well-developed, well-nourished Head exam: PRESENT: atraumatic, normocephalic Eye exam: PRESENT: conjunctiva pink, EOMI, PERRLA. ABSENT: scleral icterus Ear exam: PRESENT: normal external ear exam Mouth exam: PRESENT: moist, tongue midline Neck exam: PRESENT: full ROM. ABSENT: carotid bruit, JVD, lymphadenopathy, thyromegaly Respiratory exam: PRESENT: clear to auscultation farooq Cardiovascular exam: PRESENT: RRR. ABSENT: diastolic murmur, rubs, systolic murmur Pulses: PRESENT: normal dorsalis pedis pul, +2 pedal pulses bilateral Vascular exam: PRESENT: normal capillary refill GI/Abdominal exam: PRESENT: normal bowel sounds, soft. ABSENT: distended, guarding, mass, organolmegaly, rebound, tenderness Rectal exam: PRESENT: deferred Neurological exam: PRESENT: alert, awake, oriented to person, oriented to place , oriented to time, oriented to situation, CN II-XII grossly intact. ABSENT: motor sensory deficit Psychiatric exam: PRESENT: appropriate affect, normal mood. ABSENT: homicidal ideation, suicidal ideation Skin exam: PRESENT: dry, intact, warm. ABSENT: cyanosis, rash Results Laboratory Results: 12/15/16 05:32 12/15/16 05:32 12/15/16 12/15/16 05:32 05:32 WBC 8.0 RBC 2.97 L Hgb 10.0 L Hct 28.7 L MCV 97 MCH 33.5 H MCHC 34.7 RDW 13.6 Plt Count 117 L Sodium 139.9 Potassium 3.5 L Chloride 107 Carbon Dioxide 25 Anion Gap 8 BUN 11 Creatinine 0.54 Est GFR ( Amer) > 60 Est GFR (Non-Af Amer) > 60 Glucose 113 H Calcium 8.6 Impressions: Femur X-Ray 12/12/16 21:26 IMPRESSION: An oblique lucency is identified at the level of the proximal femur which I cannot exclude as an intertrochanteric fracture. Clinical correlation is recommended. No other evidence for fracture is seen. Lower Extremity CT 12/12/16 22:42 IMPRESSION: Transverse fracture is identified just proximal to the intertrochanteric region at the base of the neck of the right femur with angulation at the fracture site. No other evidence for fracture is seen. Other findings as noted above Fluoroscopy 12/13/16 00:00 IMPRESSION: Please see combined report for performance of procedure and radiologic supervision and interpretation. Hip/Pelvis X-Ray 12/13/16 00:00 IMPRESSION: IMAGE(S) OBTAINED DURING PROCEDURE. Chest X-Ray 12/13/16 00:07 IMPRESSION: NO ACUTE RADIOGRAPHIC FINDING IN THE CHEST. Assessment & Plan - Diagnosis (1) Hip fracture Qualifiers: Encounter type: initial encounter Fracture type: closed Laterality : right Qualified Code(s): S72.001A - Fracture of unspecified part of neck of right femur, initial encounter for closed fracture Plan: Status post surgery currently stable. Patient's do not want to use any strong pain medications we give tylenolol every 6 hour as needed (2) Hypertension Qualifiers: Hypertension type: essential hypertension Qualified Code(s): I10 - Essential (primary) hypertension Is this a current diagnosis for this admission?: YesPlan: Currently stable (3) Hypothyroidism Qualifiers: Hypothyroidism type: unspecified Qualified Code(s): E03.9 - Hypothyroidism, unspecified Is this a current diagnosis for this admission?: YesPlan: Continues to current medications (4) Dementia Qualifiers: Dementia behavioral disturbance: without behavioral disturbance Is this a current diagnosis for this admission?: YesPlan: Currently stable with the continuous medications (5) Thrombocytopenia Is this a current diagnosis for this admission?: YesPlan: Before the surgery patient's platelet count was 160 currently 108 I think is currently all stable will continues to patients to monitor repeat the platelet count in the morning (6) Osteoarthritis Qualifiers: Osteoarthritis location: unspecified site Is this a current diagnosis for this admission?: YesPlan: Continues as needed medications - Time Time Spent with patient: 15-24 minutes Medications reviewed and adjusted accordingly: Yes Anticipated discharge: SNF Within: within 24 hours - Inpatient Certification Medical Necessity: Need Close Monitoring Due to Risk of Patient Decompensation Post Hospital Care: D/C Turnaround Planner Documentation - Plan Summary Plan Summary: Continues to current medications continues to monitor the patient's hopefully discharge to nursing homes
--- NOTE | 2016-12-15 15:01 | PDOC PROGRESS REPORT ---
Subjective Progress Note for:: 12/15/16 Subjective:: Patient resting comfortably in bed. No issues overnight. Physical Exam Vital Signs: Temp Pulse Resp BP Pulse Ox 37.0 C 85 16 111/62 94 12/15/16 12:00 12/15/16 14:00 12/15/16 12:00 12/15/16 12:00 12/15/16 12:00 Intake & Output 12/14/16 12/15/16 12/16/16 06:59 06:59 06:59 Intake Total 5131 520 Output Total 2105 360 Balance 3026 160 Weight 45.6 kg 48.4 kg General appearance: PRESENT: no acute distress Eye exam: PRESENT: EOMI. ABSENT: conjunctival injection, nystagmus Respiratory exam: PRESENT: symmetrical, unlabored Pulses: PRESENT: normal dorsalis pedis pul Adult Front & Back Image: 1 - Dressings are dry clean and intact. 5 out of 5 motor distally with good sensation to light touch. Good capillary refill. Results Laboratory Results: 12/15/16 05:32 12/15/16 05:32 12/15/16 12/15/16 05:32 05:32 WBC 8.0 RBC 2.97 L Hgb 10.0 L Hct 28.7 L MCV 97 MCH 33.5 H MCHC 34.7 RDW 13.6 Plt Count 117 L Sodium 139.9 Potassium 3.5 L Chloride 107 Carbon Dioxide 25 Anion Gap 8 BUN 11 Creatinine 0.54 Est GFR ( Amer) > 60 Est GFR (Non-Af Amer) > 60 Glucose 113 H Calcium 8.6 Impressions: Femur X-Ray 12/12/16 21:26 IMPRESSION: An oblique lucency is identified at the level of the proximal femur which I cannot exclude as an intertrochanteric fracture. Clinical correlation is recommended. No other evidence for fracture is seen. Lower Extremity CT 12/12/16 22:42 IMPRESSION: Transverse fracture is identified just proximal to the intertrochanteric region at the base of the neck of the right femur with angulation at the fracture site. No other evidence for fracture is seen. Other findings as noted above Fluoroscopy 12/13/16 00:00 IMPRESSION: Please see combined report for performance of procedure and radiologic supervision and interpretation. Hip/Pelvis X-Ray 12/13/16 00:00 IMPRESSION: IMAGE(S) OBTAINED DURING PROCEDURE. Chest X-Ray 12/13/16 00:07 IMPRESSION: NO ACUTE RADIOGRAPHIC FINDING IN THE CHEST. Status: Image reviewed by me Assessment & Plan - Plan Summary Plan Summary: Patient is postop day 2 from nailing of right intertrochanteric hip fracture. Continue weight-bear as tolerated. Anticipate alf facility. H&H is stable. Continue DVT prophylaxis.
[2016-12-16 06:01] LABS: HEMATOCRIT 28.2 % (36.0-47.0); HEMOGLOBIN 9.6 g/dL (12.0-15.5); HGB HCT DIFFERENCE 0.6; MEAN CORPUSCULAR HEMOGLOBIN 33.3 pg (27.0-33.4); MEAN CORPUSCULAR VOLUME 98 fl (80-97); RED BLOOD COUNT 2.88 10^6/uL (3.72-5.28); RED CELL DISTRIBUTION WIDTH 13.4 % (11.5-14.0); WHITE BLOOD COUNT 6.6 10^3/uL (4.0-10.5)
[2016-12-16 06:32] LABS: ANION GAP 9 (5-19); BLOOD UREA NITROGEN 11 mg/dL (7-20); CALCIUM 8.5 mg/dL (8.4-10.2); CARBON DIOXIDE 26 mmol/L (22-30); CHLORIDE 103 mmol/L (98-107); CREATININE RESULT 0.65 mg/dL (0.52-1.25); GLUCOSE 104 mg/dL (75-110); POTASSIUM 3.6 mmol/L (3.6-5.0); SODIUM 137.5 mmol/L (137-145)
--- NOTE | 2016-12-16 07:48 | PDOC TRANSFER SUMMARY ---
General - Admit/Disc Date/PCP Admission Date/Primary Care Provider: 12/13/16 02:04 THIERRY HEATON MD Discharge Date: 12/16/16 - Discharge Diagnosis (1) Hip fracture Summary: Status post surgery follow-up with Ortho and a fall precautions and physical therapy as per also daily (2) Hypertension Is this a current diagnosis for this admission?: YesSummary: Currently stable continues to current medications and to check her blood pressures daily (3) Hypothyroidism Is this a current diagnosis for this admission?: YesSummary: Continues to Synthroid (4) Dementia Is this a current diagnosis for this admission?: YesSummary: Currently stable continues to Namenda (5) Thrombocytopenia Is this a current diagnosis for this admission?: YesSummary: Currently stable repeat the CBC in 3 days (6) Osteoarthritis Is this a current diagnosis for this admission?: YesSummary: Continues tylenolol - Additional Information Resuscitation Status: Full Code Discharge Diet: Cardiac, Diabetic Discharge Activity: Activity As Tolerated Home Medications: Calcium Carbonate [Tums Chewable 500 mg Tab.chew] 500 mg PO BID 12/13/16 Cholecalciferol (Vitamin D3) [Vitamin D3] 2,000 unit PO DAILY 12/13/16 Folic Acid 1 mg PO DAILY 12/13/16 Hydrochlorothiazide [Hydrodiuril 12.5 mg Capsule] 12.5 mg PO QAM 12/13/16 Levothyroxine Sodium [Synthroid] 50 mcg PO DAILY 12/13/16 Memantine HCl [Namenda] 5 mg PO DAILY 12/13/16 Multivitamin [Tab-A-Melissa (Multiple Vitamin) Tablet] 1 tab PO DAILY 12/13/16 [place]-3/Dha/Epa/Fish Oil [Fish Oil 1,000 mg Softgel] 1,000 mg PO DAILY 12/13/16 Enoxaparin Sodium [Lovenox Inj 40 Mg/0.4 Ml Disp.Syrin] 30 mg SUBCUT DAILY #10 disp.syrin 12/16/16 Oxycodone HCl/Acetaminophen [Percocet 5-325 mg Tablet] 1 tab PO Q6HP PRN #30 tablet 12/16/16 History of Present Illness Admission Date/PCP: 12/13/16 02:04 THIERRY HEATON MD History of Present Illness: AFRICA FELDMAN is a 86 year old female who lives at home alone does have a caregiver who is her neighbor who acts as the power of consumer attorney. According to the caregiver patient was on her recliner when she inadvertently fell onto her right hip. At the time of injury she is unable to ambulate had notable pain. She was admitted to the service of Dr. Heaton currently she is taking morphine. Pain is worse with motion. Due to patient's history of dementia she is a poor historian. Denies numbness or tingling. Pain 01/16. Hospital Course Hospital Course: This is a 86-year-old female she fell at home and came to the emergency department and find right intratrochanteric fracture of the hip) underwent for the surgery. Patient's other medical problem was stable. Patient's platelet count was slightly lower but other than that is all coming back. Patients denied any chest pain denied any shortness of the breath .discussed with the power of consumer attorney Regarding the patient's current conditions and the send the patient's to the rehab Continues the Lovenox as per discussed with the Ortho currently patient is fully ambulatory Check a CBC in the 3 days while on the Lovenox due to the low platelet count Physical Exam Vital Signs: Temp Pulse Resp BP Pulse Ox 99.0 F 91 13 149/72 H 96 12/16/16 03:14 12/16/16 03:14 12/16/16 03:14 12/16/16 03:14 12/16/16 03:14 Intake & Output 12/15/16 12/16/16 12/17/16 06:59 06:59 06:59 Intake Total 520 740 Output Total 360 200 Balance 160 540 Weight 48.4 kg 46.7 kg General appearance: PRESENT: no acute distress, well-developed, well-nourished Head exam: PRESENT: atraumatic, normocephalic Eye exam: PRESENT: conjunctiva pink, EOMI, PERRLA. ABSENT: scleral icterus Ear exam: PRESENT: normal external ear exam Mouth exam: PRESENT: moist, tongue midline Neck exam: ABSENT: carotid bruit, JVD, lymphadenopathy, thyromegaly Respiratory exam: PRESENT: clear to auscultation farooq. ABSENT: rales, rhonchi, wheezes Cardiovascular exam: PRESENT: RRR. ABSENT: diastolic murmur, rubs, systolic murmur Pulses: PRESENT: normal dorsalis pedis pul Vascular exam: PRESENT: normal capillary refill GI/Abdominal exam: PRESENT: normal bowel sounds, soft. ABSENT: distended, guarding, mass, organolmegaly, rebound, tenderness Rectal exam: PRESENT: deferred Extremities exam: PRESENT: full ROM. ABSENT: calf tenderness, clubbing, pedal edema Neurological exam: PRESENT: alert, awake, oriented to person, oriented to place , oriented to time, oriented to situation, CN II-XII grossly intact. ABSENT: motor sensory deficit Psychiatric exam: PRESENT: appropriate affect, normal mood. ABSENT: homicidal ideation, suicidal ideation Skin exam: PRESENT: dry, intact, warm. ABSENT: cyanosis, rash Results Laboratory Results: 12/16/16 05:45 12/16/16 05:45 12/16/16 12/16/16 05:45 05:45 WBC 6.6 RBC 2.88 L Hgb 9.6 L Hct 28.2 L MCV 98 H MCH 33.3 MCHC 34.0 RDW 13.4 Plt Count 138 L Sodium 137.5 Potassium 3.6 Chloride 103 Carbon Dioxide 26 Anion Gap 9 BUN 11 Creatinine 0.65 Est GFR ( Amer) > 60 Est GFR (Non-Af Amer) > 60 Glucose 104 Calcium 8.5 Impressions: Femur X-Ray 12/12/16 21:26 IMPRESSION: An oblique lucency is identified at the level of the proximal femur which I cannot exclude as an intertrochanteric fracture. Clinical correlation is recommended. No other evidence for fracture is seen. Lower Extremity CT 12/12/16 22:42 IMPRESSION: Transverse fracture is identified just proximal to the intertrochanteric region at the base of the neck of the right femur with angulation at the fracture site. No other evidence for fracture is seen. Other findings as noted above Fluoroscopy 12/13/16 00:00 IMPRESSION: Please see combined report for performance of procedure and radiologic supervision and interpretation. Hip/Pelvis X-Ray 12/13/16 00:00 IMPRESSION: IMAGE(S) OBTAINED DURING PROCEDURE. Chest X-Ray 12/13/16 00:07 IMPRESSION: NO ACUTE RADIOGRAPHIC FINDING IN THE CHEST. Transfer Plan - Time Spent with Patient Time spent with patient: Greater than 30 Minutes - Discharge the patient to the rehab in the fall precautions. check a CBC to 3 days while patient in the Lovenox check the Chem-7 in 1 week. Follow with the Ortho as an appointment. And continues to physical therapy
[2016-12-16] MEDS ORDERED: LEVOTHYROXINE SODIUM 0.05 MG TABLET PO SCH (08:00)
[2016-12-16 08:28] VITALS: BP 138/75
[2016-12-16] MEDS: OXYCODONE-ACETAMINOPHEN 5-325 MG TABLET PO PRN (08:40)
[2016-12-16] MEDS: MULTIVITAMIN TABLET PO SCH (09:29)
[2016-12-16] MEDS: CHOLECALCIFEROL (D3) 1,000 UNIT TABLET PO SCH (09:29)
[2016-12-16] MEDS: OMEGA-3 ACID ETHYL ESTERS 1 GM CAPSULE PO SCH (09:29)
[2016-12-16] MEDS: FOLIC ACID 1 MG TABLET PO SCH (09:30)
[2016-12-16] MEDS: CALCIUM CARBONATE 500 MG TAB.CHEW PO SCH (09:30)
[2016-12-16] MEDS: MEMANTINE HCL 10 MG TABLET PO SCH (09:30)
[2016-12-16] MEDS: HYDROCHLOROTHIAZIDE 12.5 MG CAPSULE PO SCH (09:30)
== END 2016-12-16 13:52 | DRG 482 ==
LOC: ER 21:19 → EH 12-13 02:04 → UNDOADMIN 12-13 02:22 → EH 12-13 02:22 → 4S 12-13 04:48
PROVIDERS: ADMIT Family Medicine; ATTEND Family Medicine
PROC: 0QS606Z Reposition Right Upper Femur with Intramedullary Internal Fixation Device, Open Approach (ICD-10-PCS; principal; 2016-12-13 18:30)
DX: S72.141A Displaced intertrochanteric fracture of right femur, initial encounter for closed fracture (principal); I10 Essential (primary) hypertension; E78.5 Hyperlipidemia, unspecified; E03.9 Hypothyroidism, unspecified; D69.6 Thrombocytopenia, unspecified; M19.90 Unspecified osteoarthritis, unspecified site; F03.90 Unspecified dementia, unspecified severity, without behavioral disturbance, psychotic disturbance, mood disturbance, and anxiety; W07.XXXA Fall from chair, initial encounter; Y93.9 Activity, unspecified; Y92.008 Other place in unspecified non-institutional (private) residence as the place of occurrence of the external cause; Z60.2 Problems related to living alone
CPT/HCPCS: 01210; 01230; 36415; 71010; 80048; 85025; 85027; 85610; 85730; 86850; 86900; 86901; 93005; 93010; 94799; 96374; 96376; 99285; G8978-GP; G8979-GP; G8987-GO; G8988-GO; J0690; J1650; J2250; J2270; J2704; J3490; J7030; J7120

== ENCOUNTER 2016-12-16 19:40 | Emergency (ER) | payer MEDICARE, OTHER ==
--- NOTE | 2016-12-16 21:45 | RADIOLOGY REPORT (SQ) ---
EXAM DESCRIPTION: FEMUR RIGHT COMPLETED DATE/TIME: 12/16/2016 9:32 pm REASON FOR STUDY: fall COMPARISON: 12/12/2016 NUMBER OF VIEWS: Two views. TECHNIQUE: Two radiographic images acquired of the right femur to include hip and knee in at least o ne projection. LIMITATIONS: None. FINDINGS: MINERALIZATION: Normal. BONES: No acute fracture. Right femoral fixation hardware appears intact. Femoral neck fracture aga in noted in anatomic alignment. No worrisome bone lesions. SOFT TISSUES: No obvious swelling or foreign body. OTHER: No other significant finding. IMPRESSION: No acute fracture. Right femoral fixation hardware appears intact. Femoral neck fractu re again noted in anatomic alignment. TECHNICAL DOCUMENTATION: JOB ID: [id number] [email or web address]- All Rights Reserved
[2016-12-16] MEDS ORDERED: ACETAMINOPHEN 325 MG TABLET PO ONE (22:23)
[2016-12-16] MEDS ORDERED: MORPHINE SULFATE IR 15 MG TABLET PO ONE (22:24)
--- NOTE | 2016-12-16 22:27 | ER Document Report ---
ED General - General Chief Complaint: Fall Stated Complaint: FALL/NECK PAIN Time Seen by Provider: 12/16/16 21:28 Cannot obtain history due to: Dementia Notes: Patient is an 86-year-old female with a history of advanced dementia who presents after falling onto her right hip. Patient was just admitted to [facility] today apparently got up without calling for assistance and fell directly onto her right hip. No additional injuries were sustained. Patient has been complaining of a constant dull, aching pain to that area since that time. She did not hit her head or neck. She had a right hip fracture status post internal fixation last week. History is otherwise limited secondary to patient's dementia TRAVEL OUTSIDE OF THE [place] IN LAST 30 DAYS: No - Related Data Allergies/Adverse Reactions: levothyroxine sodium [Levothyroxine Sodium] Adverse Reaction (Verified 12/16/16 20:20) NAUSEA/VOMITING Past Medical History - General Information source: Relative Cannot obtain history due to: Dementia - Social History Smoking Status: Never Smoker Chew tobacco use (# tins/day): No Frequency of alcohol use: None Drug Abuse: None Lives with: Shelter Family History: Reviewed & Not Pertinent Patient has suicidal ideation: No Patient has homicidal ideation: No - Past Medical History Cardiac Medical History: Reports: Hx Hypercholesterolemia, Hx Hypertension - meds 8-10 yrs Denies: Hx Coronary Artery Disease, Hx Heart Attack Pulmonary Medical History: Denies: Hx Asthma, Hx Bronchitis, Hx COPD, Hx Pneumonia Neurological Medical History: Denies: Hx Cerebrovascular Accident, Hx Seizures Renal/ Medical History: Denies: Hx Peritoneal Dialysis GI Medical History: Reports: Hx Gastroesophageal Reflux Disease Musculoskeltal Medical History: 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 Denies: Hx Pacemaker - Immunizations Hx Diphtheria, Pertussis, Tetanus Vaccination: Yes Hx Pneumococcal Vaccination: 07/10/08 Review of Systems - Review of Systems Notes: Constitutional: Negative for fever. HENT: Negative for sore throat. Eyes: Negative for visual changes. Cardiovascular: Negative for chest pain. Respiratory: Negative for shortness of breath. Gastrointestinal: Negative for abdominal pain, vomiting or diarrhea. Genitourinary: Negative for dysuria. Musculoskeletal: Positive for right hip pain Skin: Negative for rash. Neurological: Negative for headaches, weakness or numbness. 10 point ROS negative except as marked above and in HPI. Physical Exam - Vital signs Vitals: Resp 20 12/16/16 20:14 Interpretation: Normal Notes: PHYSICAL EXAMINATION: GENERAL: Frail, elderly in appearance but in no acute distress HEAD: Atraumatic, normocephalic. EYES: Pupils equal round and reactive to light, extraocular movements intact, sclera anicteric, conjunctiva are normal. ENT: nares patent, no oral pharyngeal trauma. No hemotympanum, no Saba's sign , no raccoon eyes. NECK: No midline cervical spine tenderness. Patient able to move their head to 45 bilaterally without any discomfort. LUNGS: Breath sounds clear to auscultation bilaterally and equal. No wheezes rales or rhonchi. HEART: Regular rate and rhythm without murmurs. CHEST WALL: No ecchymosis over the chest wall. ABDOMEN: Soft, nontender, normoactive bowel sounds. No guarding, no rebound. No abdominal bruising EXTREMITIES: Dressings along the lateral thigh of the right lower extremity. No obvious deformity. Pain on palpation of the proximal femur BACK: No midline spinal tenderness, step-offs, or deformities. NEUROLOGICAL: Moves all extremities spontaneously on command PSYCH: Alert but oriented only to person SKIN: Warm, Dry, normal turgor, no rashes or lesions noted. Course - Re-evaluation Re-evalutation: 12/16/16 22:24 Presentation of a well appearing elderly patient in no acute distress, vitals within normal limits after a mechanical fall. Patient denies a syncopal episode as the cause for today's fall. This was a witnessed fall and she was noted to fall directly on her left side and hip. No focal neurologic deficits on exam, no evidence of basilar skull fracture on exam without evidence of hemotympanum, raccoon eyes, or periauricular hematoma. No papilledema. Patient is not on anticoagulation. GCS is 15. No loss of consciousness. No episodes of vomiting. Patient denies any neck pain and is cleared by Nexus criteria. Patient was complaining of focal pain to her right hip. X-rays show no displacement of the hardware. No acute fracture. I suspect her pain is likely related to soft tissue contusion and inflammation after the fall. Chest and abdominal exam are benign without any focal tenderness, shortness of breath , or bruising over the chest or abdominal wall. Patient has no flank tenderness. There is no obvious findings on trauma exam today and therefore no further imaging or evaluation will be obtained at this time. At this time will discharge with return precautions and follow-up recommendations. Verbal discharge instructions given a the bedside and opportunity for questions given. Medication warnings reviewed. Patient is in agreement with this plan and has verbalized understanding of return precautions and the need for primary care follow-up in the next 24-72 hours. - Vital Signs Vital signs: Temp Pulse Resp BP Pulse Ox 100.7 F H 99 12 117/71 93 12/16/16 20:21 12/16/16 20:21 12/17/16 03:01 12/17/16 03:00 12/17/16 03:01 - Diagnostic Test Radiology reviewed: Image reviewed, Reports reviewed Radiology results interpreted by me: 12/16/16 22:25 Right femur x-ray: No acute fracture, hardware in place Discharge - Discharge Clinical Impression: Right hip pain Fall Qualifiers: Encounter type: initial encounter Qualified Code(s): W19.XXXA - Unspecified fall, initial encounter Condition: Good Disposition: HOME, SELF-CARE Additional Instructions: Please do not get out of your bed without assistance. The x-ray does not show a new fracture. For any additional concerns. Referrals: THIERRY HEATON MD [Primary Care Provider] - Follow up as needed
[2016-12-17 03:10] VITALS: BP 117/71
== END 2016-12-17 03:44 | disposition home or self-care (01) ==
LOC: ER 19:40
DX: M25.551 Pain in right hip (principal); M54.2 Cervicalgia; W19.XXXA Unspecified fall, initial encounter
CPT/HCPCS: 99283; 73552; A9270 ×2

== ENCOUNTER 2016-12-24 21:27 | Emergency (ER) | payer MEDICARE, OTHER ==
--- NOTE | 2016-12-24 22:33 | RADIOLOGY REPORT (SQ) ---
EXAM DESCRIPTION: FEMUR RIGHT COMPLETED DATE/TIME: 12/24/2016 10:20 pm REASON FOR STUDY: fall injury COMPARISON: None. NUMBER OF VIEWS: Four views TECHNIQUE: 4 radiographic images acquired of the right femur to include hip and knee in at least one projection. LIMITATIONS: None. FINDINGS: MINERALIZATION: Normal. BONES: Status post open reduction, internal fixation of the femoral neck with intra medullary rods. There is no evidence of hardware fracture, perihardware lucency or migration. No acute fracture. No concerning osseous lesions. SOFT TISSUES: No obvious swelling or foreign body. OTHER: No other significant finding. IMPRESSION: Status post ORIF of the femoral neck. No evidence of hardware complication or acute oss eous injury. TECHNICAL DOCUMENTATION: JOB ID: [id number] [employer]- All Rights Reserved
--- NOTE | 2016-12-24 22:34 | ER Document Report ---
ED General - General Chief Complaint: Fall Injury Stated Complaint: RIGHT LEG PAIN Mode of Arrival: Medic Information source: Patient, Emergency Med Personnel TRAVEL OUTSIDE OF THE [place] IN LAST 30 DAYS: No - HPI Notes: Patient is a 86-year-old [place] female presents emergency department with report of an unwitnessed fall that occurred at the shelter. Patient has a history of dementia little recollection of the event. The patient only reports pain to the right hip region right pelvis and the right lateral rib cage. She does have old contusions through both. The patient denies any abdominal pain or anterior chest pain or headache or head injury or neck pain. Patient had no vomiting or lethargy. - Related Data Allergies/Adverse Reactions: levothyroxine sodium [Levothyroxine Sodium] Adverse Reaction (Verified 12/16/16 20:20) NAUSEA/VOMITING Past Medical History - General Information source: Patient, Emergency Med Personnel, Outside Facility Records - Social History Smoking Status: Never Smoker Frequency of alcohol use: None Drug Abuse: None Lives with: Senior Living Family History: Reviewed & Not Pertinent - Past Medical History Cardiac Medical History: Reports: Hx Hypercholesterolemia, Hx Hypertension - meds 8-10 yrs Denies: Hx Coronary Artery Disease, Hx Heart Attack Pulmonary Medical History: Denies: Hx Asthma, Hx Bronchitis, Hx COPD, Hx Pneumonia Neurological Medical History: Denies: Hx Cerebrovascular Accident, Hx Seizures Renal/ Medical History: Denies: Hx Peritoneal Dialysis GI Medical History: Reports: Hx Gastroesophageal Reflux Disease Musculoskeltal Medical History: 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 Denies: Hx Pacemaker - Immunizations Hx Diphtheria, Pertussis, Tetanus Vaccination: Yes Hx Pneumococcal Vaccination: 07/10/08 Review of Systems - Review of Systems Notes: REVIEW OF SYSTEMS: CONSTITUTIONAL : Denies fever, chills, or sweats. Denies recent illness. EENT: Denies eye, ear, throat, or mouth pain or symptoms. Denies nasal or sinus congestion or discharge. Denies throat, tongue, or mouth swelling or difficulty swallowing. CARDIOVASCULAR: Denies palpitations or racing or irregular heart beat. Denies ankle edema. RESPIRATORY: Denies cough, cold, or chest congestion. Denies shortness of breath, difficulty breathing, or wheezing. GASTROINTESTINAL: Denies abdominal pain or distention. Denies nausea, vomiting , or diarrhea. Denies blood in vomitus, stools, or per rectum. Denies black, tarry stools. Denies constipation. GENITOURINARY: Denies difficulty urinating, painful urination, burning, frequency, blood in urine, or discharge. FEMALE GENITOURINARY: Denies vaginal bleeding, heavy or abnormal periods, irregular periods. Denies vaginal discharge or odor. MUSCULOSKELETAL: Denies neck pain or stiffness. Denies joint pain or swelling. SKIN: Denies rash, lesions or sores. HEMATOLOGIC : Denies easy bruising or bleeding. LYMPHATIC: Denies swollen, enlarged glands. NEUROLOGICAL: Denies confusion or altered mental status. Denies passing out or loss of consciousness. Denies dizziness or lightheadedness. Denies headache. Denies weakness or paralysis or loss of use of either side. Denies problems with gait or speech. Denies sensory loss, numbness, or tingling. Denies seizures. PSYCHIATRIC: Denies anxiety or stress. Denies depression, suicidal ideation, or homicidal ideation. ALL OTHER SYSTEMS REVIEWED AND NEGATIVE. Dictation was performed using [employer] voice recognition software Physical Exam - Vital signs Vitals: Temp Pulse Resp BP Pulse Ox 97.9 F 73 16 147/66 H 95 12/24/16 21:34 12/24/16 21:34 12/24/16 21:34 12/24/16 21:34 12/24/16 21:34 - Notes Notes: PHYSICAL EXAMINATION: GENERAL: Well-appearing, well-nourished and in no acute distress. HEAD: Atraumatic, normocephalic. EYES: Pupils equal round and reactive to light, extraocular movements intact, conjunctiva are normal. ENT: Nares patent, oropharynx clear without exudates. Moist mucous membranes. NECK: Normal range of motion, supple without lymphadenopathy LUNGS: Breath sounds clear to auscultation bilaterally and equal. No wheezes rales or rhonchi. Pain and contusion to the right lateral lower rib cage region , although the contusion appears old. No gross crepitance or bony deformity or subcutaneous emphysema noted. Patient has pain to the right HEART: Regular rate and rhythm without murmurs ABDOMEN: Soft, nontender, nondistended abdomen. No guarding, no rebound. No masses appreciated. Female : deferred Musculoskeletal: Normal range of motion, no pitting or edema. No cyanosis. Hip and femur region. No bony deformity or crepitance noted. Surgical sites appear otherwise clear of any evidence for infection. NEUROLOGICAL: Cranial nerves grossly intact. Normal speech, normal gait. Normal sensory, motor exams. Patient is alert to person and place, but not to year. This is her baseline With history of dementia. PSYCH: Normal mood, normal affect. SKIN: Warm, Dry, normal turgor, no rashes or lesions noted. Course - Re-evaluation Re-evalutation: 12/24/16 22:58 Patient is given 2 Percocet for pain. 12/25/16 00:25 X-rays negative for acute fracture. There is no evidence for pneumothorax. No neurovascular compromise. Patient was able to stand up and ambulate with assistance per her baseline. Discussion with the shelter is that they do not allow her to ambulate without significant assistance due to fall risk. 12/25/16 00:27 - Vital Signs Vital signs: Temp Pulse Resp BP Pulse Ox 97.9 F 73 16 147/66 H 95 12/24/16 21:34 12/24/16 21:34 12/24/16 21:34 12/24/16 21:34 12/24/16 21:34 Discharge - Discharge Clinical Impression: Accidental fall Qualifiers: Encounter type: initial encounter Qualified Code(s): W19.XXXA - Unspecified fall, initial encounter Contusion, hip Qualifiers: Encounter type: initial encounter Laterality: right Qualified Code(s): S70.01XA - Contusion of right hip, initial encounter Chest wall contusion Qualifiers: Encounter type: initial encounter Laterality: right Qualified Code(s): S20.211A - Contusion of right front wall of thorax, initial encounter Condition: Stable Disposition: HOME, SELF-CARE Instructions: Contusion ([facility]), Rib Contusion ([facility]) Additional Instructions: Ambulate with assistance at all times.
--- NOTE | 2016-12-24 22:36 | RADIOLOGY REPORT (SQ) ---
EXAM DESCRIPTION: PELVIS AP COMPLETED DATE/TIME: 12/24/2016 10:20 pm REASON FOR STUDY: fall injury COMPARISON: 03/27/2014 NUMBER OF VIEWS: One view TECHNIQUE: AP Pelvis LIMITATIONS: None. FINDINGS: MINERALIZATION: Normal. HIPS: Status post open reduction, internal fixation of a previously diagnosed right femoral neck frac ture. No evidence of hardware complication. No acute fracture or dislocation. No worrisome bone les ions. PELVIS AND SACRUM: A sclerotic focus seen involving the superior aspect of the left sacroiliac joint is unchanged in the study interval. No acute fracture or dislocation. No worrisome bone lesions. PUBIS AND ISCHIUM: No acute fracture. LOWER LUMBAR SPINE: No significant findings as visualized. SOFT TISSUES: No findings. OTHER: No other significant finding. IMPRESSION: Stable radiographic appearance of the pelvis. No evidence of acute osseous injury. TECHNICAL DOCUMENTATION: JOB ID: [id number] [employer]- All Rights Reserved
[2016-12-24] MEDS ORDERED: OXYCODONE-ACETAMINOPHEN 5-325 MG TABLET PO ONE (22:53)
--- NOTE | 2016-12-24 23:27 | RADIOLOGY REPORT (SQ) ---
EXAM DESCRIPTION: RIBS RIGHT W/PA CHEST COMPLETED DATE/TIME: 12/24/2016 11:04 pm REASON FOR STUDY: fall with R lateral chest wall pain COMPARISON: None. TECHNIQUE: Frontal view of the chest and additional views of the right ribs acquired. NUMBER OF VIEWS: Three view. LIMITATIONS: None. FINDINGS: FRONTAL CXR: No pneumothorax. No pleural effusion. No atelectasis or infiltrates. RIBS: No displaced rib fractures. No lytic or blastic bony lesions. OTHER: No other significant finding. IMPRESSION: NO PNEUMOTHORAX. NO DISPLACED RIB FRACTURES. COMMENT: SITE OF TRAUMA/COMPLAINT MARKED/STAMP COMPLETED: NO. TECHNICAL DOCUMENTATION: JOB ID: [id number] [employer]- All Rights Reserved
[2016-12-25 03:10] VITALS: BP 135/82
== END 2016-12-25 03:31 | disposition home or self-care (01) ==
LOC: ER 21:27
DX: S70.01XA Contusion of right hip, initial encounter (principal); S20.211A Contusion of right front wall of thorax, initial encounter; M79.604 Pain in right leg; W19.XXXA Unspecified fall, initial encounter; Z79.899 Other long term (current) drug therapy
CPT/HCPCS: 99284; 73552; 72170; 71101; A9270

== ENCOUNTER 2017-01-04 16:29 | Emergency (ER) | payer MEDICARE, OTHER ==
[2017-01-04 16:47] VITALS: BP 108/63
--- NOTE | 2017-01-04 16:47 | ER Document Report ---
ED General - General Chief Complaint: Fall Stated Complaint: FALL/HIP PAIN Time Seen by Provider: 01/04/17 16:38 Notes: 86-year-old female with a history of dementia and a right hip fracture 3 weeks ago, in rehab, presents with left hip pain acute severe worse with range of motion for about 3 hours since she had a mechanical fall although it was unwitnessed. She states she was trying to get in the bed and fell on the ground. She was on the floor by staff. EMS brought her in, notably they did wrap her hip with a towel in a makeshift pelvic binder. Normal vitals. TRAVEL OUTSIDE OF THE [place] IN LAST 30 DAYS: No - Related Data Allergies/Adverse Reactions: levothyroxine sodium [Levothyroxine Sodium] Adverse Reaction (Verified 12/16/16 20:20) NAUSEA/VOMITING Past Medical History - Social History Smoking Status: Unknown if Ever Smoked Family History: Reviewed & Not Pertinent - Past Medical History Cardiac Medical History: Reports: Hx Hypercholesterolemia, Hx Hypertension - meds 8-10 yrs Denies: Hx Coronary Artery Disease, Hx Heart Attack Pulmonary Medical History: Denies: Hx Asthma, Hx Bronchitis, Hx COPD, Hx Pneumonia Neurological Medical History: Denies: Hx Cerebrovascular Accident, Hx Seizures Renal/ Medical History: Denies: Hx Peritoneal Dialysis GI Medical History: Reports: Hx Gastroesophageal Reflux Disease Musculoskeltal Medical History: 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 Denies: Hx Pacemaker - Immunizations Hx Diphtheria, Pertussis, Tetanus Vaccination: Yes Hx Pneumococcal Vaccination: 07/10/08 Review of Systems - Review of Systems Notes: GEN: Denies fever, chills, weight loss ENT: Denies sore throat, nasal discharge, ear pain EYES: Denies blurry vision, eye pain, discharge CV: Denies chest pain, palpitations, edema RESP: Denies cough, shortness of breath, wheezing GI: Denies abdominal pain, nausea, vomiting, diarrhea MSK: Hip pain SKIN: Denies rash, skin lesions LYMPH: Denies swollen glands/lymph nodes NEURO: Denies headache, focal weakness or numbness, dizziness PSYCH: Denies depression, suicidal or homicidal ideation Physical Exam - Vital signs Vitals: Temp Pulse Resp BP Pulse Ox 98.8 F 82 17 108/63 94 01/04/17 16:40 01/04/17 16:40 01/04/17 16:40 01/04/17 16:40 01/04/17 16:40 - Notes Notes: General: No acute distress, well-nourished Head: Atraumatic, normocephalic frail elderly. ENT: Mouth normal, oropharynx moist, no exudates or tonsillar enlargement Eyes: Conjunctiva normal, pupils equal, lids normal Neck: No JVD, supple, no guarding CVS: Normal rate, regular rhythm, no murmurs Resp: No resp distress, equal and normal breath sounds bilaterally GI: Nondistended, soft, no tenderness to palpation, no rebound or guarding Ext: No deformities, no edema, severe pain on left hip range of motion. Not shortened or angulated. Also in the left foot. Skin: No rash, warm Lymphatic: No lymphadeopathy noted Neuro: Awake, alert. Face symmetric. Course - Re-evaluation Re-evalutation: 01/04/17 16:45 Elderly female with a history of right hip fracture presents with severe left hip pain on range of motion after likely fall from standing versus syncope. Differential includes hip fracture femur fracture pelvic fracture. Will get x- rays, and do syncope workup in the ED. 01/04/17 18:40 EKG and labs are normal, CT does not show occult hip fracture. Patient is now much more mobile able to roll onto a bedpan and off. She is able to bear weight and safe to be discharged home. I I have discussed with the patient there likely diagnosis, aftercare plan, follow-up plans and my usual and customary return precautions. They verbalized understanding of this. 01/04/17 18:40 - Vital Signs Vital signs: Temp Pulse Resp BP Pulse Ox 98.8 F 82 17 108/63 94 01/04/17 16:40 01/04/17 16:40 01/04/17 16:40 01/04/17 16:40 01/04/17 16:40 - Laboratory Result Diagrams: 01/04/17 17:18 01/04/17 17:18 Laboratory results interpreted by me: 01/04/17 01/04/17 17:18 17:18 RBC 3.55 L Hgb 11.9 L Hct 35.4 L MCV 100 H MCH 33.7 H RDW 14.3 H Carbon Dioxide 32 H - Diagnostic Test Radiology reviewed: Image reviewed, Reports reviewed - EKG Interpretation by Me EKG shows normal: Sinus rhythm Rate: Normal Rhythm: NSR - No ST or T-wave changes, normal intervals Discharge - Discharge Clinical Impression: Contusion of left hip Qualifiers: Encounter type: initial encounter Qualified Code(s): S70.02XA - Contusion of left hip, initial encounter Condition: Good Disposition: HOME, SELF-CARE Instructions: Contusion (OM) Referrals: THIERRY HEATON MD [Primary Care Provider] - Follow up as needed
--- NOTE | 2017-01-04 17:30 | RADIOLOGY REPORT (SQ) ---
EXAM DESCRIPTION: PELVIS AP COMPLETED DATE/TIME: 01/04/2017 5:19 pm REASON FOR STUDY: left hip pain, old R hip fx COMPARISON: 12/24/2016 NUMBER OF VIEWS: One view TECHNIQUE: AP Pelvis LIMITATIONS: None. FINDINGS: MINERALIZATION: Osteopenia. HIPS: Intramedullary efrem and dynamic hip screw noted on the right, unchanged the prior study. There is no evidence of periprostatic fracture. No destructive bony lesions identified. No hardware compl ication. No hip fracture identified on the left. PELVIS AND SACRUM: Sclerotic focus involving the superior aspect of the left sacroiliac joint again n oted and unchanged. No acute fracture dislocation. No worrisome bony lesions. PUBIS AND ISCHIUM: No acute fracture. LOWER LUMBAR SPINE: No significant findings as visualized. SOFT TISSUES: No findings. OTHER: No other significant finding. IMPRESSION: No acute fracture dislocation identified. No evidence of hardware complication of previ ously instrumented right hip fracture. TECHNICAL DOCUMENTATION: JOB ID: [id number] [employer]- All Rights Reserved
--- NOTE | 2017-01-04 17:31 | RADIOLOGY REPORT (SQ) ---
EXAM DESCRIPTION: CHEST SINGLE VIEW COMPLETED DATE/TIME: 01/04/2017 5:19 pm REASON FOR STUDY: fall COMPARISON: 12/13/2016 EXAM PARAMETERS: NUMBER OF VIEWS: One view. TECHNIQUE: Single frontal radiographic view of the chest acquired. RADIATION DOSE: NA LIMITATIONS: None. FINDINGS: LUNGS AND PLEURA: No opacities, masses or pneumothorax. No pleural effusion. MEDIASTINUM AND HILAR STRUCTURES: No masses. Contour normal. HEART AND VASCULAR STRUCTURES: Heart normal in size. Normal vasculature. BONES: No acute findings. HARDWARE: None in the chest. OTHER: Clips noted in the region of the thyroid gland. IMPRESSION: NO ACUTE RADIOGRAPHIC FINDING IN THE CHEST. TECHNICAL DOCUMENTATION: JOB ID: [id number]
[2017-01-04 17:43] LABS: ANION GAP 10 (5-19); BLOOD UREA NITROGEN 16 mg/dL (7-20); CALCIUM 10.2 mg/dL (8.4-10.2); CARBON DIOXIDE 32 mmol/L (22-30); CHLORIDE 99 mmol/L (98-107); CREATININE RESULT 0.78 mg/dL (0.52-1.25); GLUCOSE 100 mg/dL (75-110); POTASSIUM 3.6 mmol/L (3.6-5.0); SODIUM 141.2 mmol/L (137-145)
--- NOTE | 2017-01-04 17:45 | RADIOLOGY REPORT (SQ) ---
EXAM DESCRIPTION: CT PELVIS WITHOUT COMPLETED DATE/TIME: 01/04/2017 5:34 pm REASON FOR STUDY: Left hip pain cannot ambulate rule out occult frac COMPARISON: 2009 TECHNIQUE: CT scan of the pelvis performed without intravenous or oral contrast. Images reviewed wi th soft tissue and bone windows. Reconstructed coronal and sagittal MPR images reviewed. All images stored on PACS. All CT scanners at this facility use dose modulation, iterative reconstruction, and/or weight based d osing when appropriate to reduce radiation dose to as low as reasonably achievable (ALARA). [facility]: Dose Right [facility]: CareDose [facility]: Dose Right [facility]: Teradose 4D [facility]: Smart Priori Data RADIATION DOSE: Up-to-date CT equipment and radiation dose reduction techniques were employed. CTDIv ol: 10.3 mGy. DLP: 296 mGy-cm. mGy. LIMITATIONS: None. FINDINGS: PELVIC BONES: Generalized osteopenia. No acute fracture. There is a sclerotic bone lesio n of the left iliac wing which is increased in size since 2009. Likely benign however increase in si ze is slightly worrisome. Recommend bone scan to U assess activity. VISUALIZED SPINE: Marked degenerative disc disease with osteophytes. HIP(S): Post treatment changes of the right hip. No acute fracture on the left. PELVIC SOFT TISSUES: Diverticulosis. EXTRAPELVIC SOFT TISSUES: No significant findings. OTHER: No other significant finding. IMPRESSION: No acute fracture. Sclerotic bone lesion left iliac wing increased in size since 2009. Likely benign but the size incre ases slightly worrisome and therefore bone scan should be considered to assess activity. TECHNICAL DOCUMENTATION: JOB ID: [id number] Quality ID # [id number]: Final reports with documentation of one or more dose reduction techniques (e.g., Au tomated exposure control, adjustment of the mA and/or kV according to patient size, use of iterative reconstruction technique) 2010 [employer]- All Rights Reserved
[2017-01-04 18:01] LABS: ABSOLUTE EOSINOPHILS # (AUTO) 0.1 10^3/uL (0.0-0.6); ABSOLUTE LYMPHOCYTES (AUTO) 1.4 10^3/uL (0.5-4.7); ABSOLUTE MONOCYTES (AUTO) 0.3 10^3/uL (0.1-1.4); ABSOLUTE NEUT (AUTO) 2.8 10^3/uL (1.7-8.2); EOSINOPHILS % (AUTO) 1.3 % (0-6); HEMATOCRIT 35.4 % (36.0-47.0); HEMOGLOBIN 11.9 g/dL (12.0-15.5); HGB HCT DIFFERENCE 0.3; LYMPHOCYTES % (AUTO) 31.1 % (13-45); MEAN CORPUSCULAR HEMOGLOBIN 33.7 pg (27.0-33.4); MEAN CORPUSCULAR HGB CONC 33.8 g/dL (32.0-36.0); MEAN CORPUSCULAR VOLUME 100 fl (80-97); MONOCYTES % (AUTO) 6.9 % (3-13); RED BLOOD COUNT 3.55 10^6/uL (3.72-5.28); RED CELL DISTRIBUTION WIDTH 14.3 % (11.5-14.0); SEGMENTED NEUTROPHILS % (AUTO) 59.7 % (42-78); WHITE BLOOD COUNT 4.7 10^3/uL (4.0-10.5)
--- NOTE | 2017-01-04 21:24 | EKG REPORT ---
SEVERITY:- NORMAL ECG - SINUS RHYTHM : Confirmed by: Selina Brumfield 04-Jan-2017 21:23:46
== END 2017-01-04 22:31 | disposition home or self-care (01) ==
LOC: ER 16:29
DX: S70.02XA Contusion of left hip, initial encounter (principal); M25.551 Pain in right hip; W19.XXXA Unspecified fall, initial encounter
CPT/HCPCS: 36415; 71010; 72170; 72192; 80048; 85025; 93005; 93010; 99285